=== PATIENT | female | born 1995 | race Caucasian/White ===

== ENCOUNTER → 2017-10-19 | Emergency (ER) | payer OTHER ==
[~2017-10-19] VITALS: Ht 162.6 cm; Wt 63.5 kg
[~2017-10-19] MED LIST: ALBUTEROL2.5 MG/3 M IH; PRENATABS RX TA1 TAB; PROVENTIL HFA6.7 GM IH; QVAR8.7 G1 IH; ZITHROMAX TRI-500 MG PO
== END | disposition home or self-care (01) ==
LOC: ER 01:04
DX: J98.01 Acute bronchospasm (principal)

== ENCOUNTER 2025-08-28 13:28 | Outpatient (CLI) | payer OTHER ==
[~2025-08-28] VITALS: Ht 162.6 cm; Wt 80.7 kg
[2025-08-28 12:50] VITALS: BP 118/77
[2025-08-28] MEDS ORDERED: ONDANSETRON HCL 2 MG/ML VIAL IV PRN (14:00)
[2025-08-28] MEDS ORDERED: LOPERAMIDE HCL 2 MG CAPSULE PO NR (14:00)
[2025-08-28] MEDS ORDERED: RINGERS SOLUTION,LACTATED 1,000 ML IV SCH (14:00)
[2025-08-28] MEDS ORDERED: FAMOTIDINE/PF 20 MG/2 ML VIAL IV PRN (14:00)
[2025-08-28 14:16] LABS: URINE APPEARANCE Clear; URINE BILIRRUBIN Negative (NEGATIVE); URINE BLOOD Negative; URINE COLOR Yellow; URINE GLUCOSE Negative (NEGATIVE); URINE LEUKOCYTE Trace; URINE NITRATE Negative; URINE PROTEIN Negative (NEGATIVE); URINE UROBILINOGEN 1.0 E.U./dl
[2025-08-28 14:18] LABS: BASO % 0.2 % (0.1-1.2); EOS # 0.01 (0.04-0.54); EOS % 0.2 % (0.7-7.0); LYMPH # 0.60 (1.18-3.74); LYMPH % 10.9 % (19.3-53.1); MEAN PLATELET VOLUME 10.50 fl (9.4-12.4); MONO # 0.34 (0.24-0.82); MONO % 6.2 % (4.7-12.5); NEUT # 4.47 (1.56-6.13); NEUT % 81.4 % (34.0-71.1); RED CELL DISTRIBUTION WIDTH 14.5 % (11.6-14.4)
[2025-08-28 14:23] LABS: URINE EPITHELIAL CELLS 28.6 uL (0.0-38.8); URINE RBC 4.6 uL (0.0-20.8); URINE WBC 53.9 uL (0.0-23.2)
[2025-08-28 14:38] LABS: URINE CAST 0.28 uL (0.0-1.40); URINE KETONE >=160 (NEGATIVE)
[2025-08-28 14:48] LABS: INR 0.98
[2025-08-28 15:19] VITALS: BP 99/62
[2025-08-28 15:30] LABS: ALT/SGPT 23.0 U/L (12-78); AST/SGOT 21.0 U/L (15-37); BILIRUBIN TOTAL 0.82 mg/dL (0.3-1.2); BUN CREA RATIO 15.0 (7.0-25.0); CREATININE SERUM 0.34 mg/dL (0.55-1.02); GFR 224.57; GLOBULINA 3.4 G/DL (2.4-3.5); GLUCOSE FASTING 78.0 mg/dL (65-100); OSMOLALITY SERUM 272.0 MOSM/KG (275-295)
[2025-08-28] MEDS ORDERED: ONDANSETRON4 MG/2 M1 IV (16:08)
[2025-08-28] MEDS ORDERED: LOPERAMIDE2 MG PO (16:08)
[2025-08-28] MEDS ORDERED: FAMOTIDINE20 MG/2 M1 IV (16:08)
[2025-08-28 17:13] VITALS: BP 99/62
== END 2025-08-28 17:13 | disposition home or self-care (01) ==
LOC: OBS/DEL 13:28
PROVIDERS: ATTEND Specialist
DX: O26.893 Other specified pregnancy related conditions, third trimester (principal); R11.2 Nausea with vomiting, unspecified; Z3A.31 31 weeks gestation of pregnancy